=== PATIENT | male | born 1985 | race Two or more races ===

== ENCOUNTER 2020-07-27 01:43 | Emergency (ER) | payer SELFPAY ==
[~2020-07-27] VITALS: Ht 182.9 cm; Wt 81.0 kg
[2020-07-27] MEDS ORDERED: ACETAMINOPHEN 500MG TABLET PO ONE (02:30)
[2020-07-27 04:05] VITALS: BP 130/78
== END 2020-07-27 04:08 | disposition home or self-care (01) ==
LOC: ER 01:43
DX: U07.1 COVID-19 (principal); R03.0 Elevated blood-pressure reading, without diagnosis of hypertension
CPT/HCPCS: 71045; 87635; 99284